=== PATIENT | female | born 1970 | race African-American/Black ===

== ENCOUNTER 2017-03-27 19:53 | Emergency (ER) | payer BC ==
[2017-03-27 20:02] VITALS: BP 137/90; PULSE 77; TEMP 99; BMI 40.2
--- NOTE | 2017-03-27 20:15 | PDOC ---
History of Present Illness - General History Source: Patient Exam Limitations: No Limitations - History of Present Illness Initial Comments: The patient is a 46 yo F with a PMHx significant for pituitary adenoma who presents with L 4th toe pain. The patient states at 4pm today after having an argument over the phone with her she turned around and hit her 4th L toe on the wheels of a suitcase. The patient denies pain at rest. The patient denies loss of sensation. <Vernell Rubi - Last Filed: 03/27/17 20:26> - General History Source: Patient, Old Records Exam Limitations: No Limitations <Enedina Correa - Last Filed: 03/27/17 21:42> - General Chief Complaint: Injury Stated Complaint: TOE PAIN Time Seen by Provider: 03/27/17 20:12 Past History <Vernell Rubi - Last Filed: 03/27/17 20:26> - Past Medical History Other medical history: ELEVATED PROLACTIN LEVELS - Surgical History Abdominal Surgery: Yes (TUBAL LIGATION) - Psycho/Social/Smoking Cessation Hx Anxiety: No Suicidal Ideation: No Smoking Status: No Smoking History: Never smoked Have you smoked in the past 12 months: No Number of Cigarettes Smoked Daily: 0 Hx Alcohol Use: No Drug/Substance Use Hx: No Substance Use Type: None <Enedina Correa - Last Filed: 03/27/17 21:42> - Past Medical History Allergies/Adverse Reactions: Allergies Allergy/AdvReac Type Severity Reaction Status Date / Time Penicillins Allergy Severe Difficulty Verified 11/20/15 23:23 Breathing Home Medications: Ambulatory Orders Cabergoline [Dostinex -] 0.5 mg PO WEEKLY 03/27/17 Review of Systems - Review of Systems Able to Perform ROS?: Yes Comments:: CONSTITUTIONAL: Absent: fever, no chills, no fatigue EYES: Absent: visual changes ENT: Absent: ear pain, no sore throat CARDIOVASCULAR: Absent: chest pain, no palpitations RESPIRATORY: Absent: cough, no SOB GI: Absent: abdominal pain, no nausea, no vomiting, no constipation, no diarrhea GENITOURINARY: Absent: dysuria, no frequency, no hematuria MUSKULOSKELETAL: Absent: +4th L toe pain. back pain, neck pain SKIN: Absent: rash <Vernell Rubi - Last Filed: 03/27/17 20:26> *Physical Exam - Vital Signs Last Vital Signs Temp Pulse Resp BP Pulse Ox 99 F 77 20 137/90 97 03/27/17 19:59 03/27/17 19:59 03/27/17 19:59 03/27/17 19:59 03/27/17 19:59 - Physical Exam Comments: GENERAL: Well-appearing, well-nourished. No apparent distress. HEENT: Normocephalic, atraumatic. PERRL, EOM intact. CARDIOVASCULAR: Normal S1, S2. Regular rate and rhythm. PULMONARY: Clear to auscultation bilaterally. ABDOMEN: Soft, non-distended, non-tender. EXTREMITIES: Normal ROM in all four extremities. No gross deformities. Point tenderness to distal 4th metatarsal and entire 4th toe. Minimal soft tissue swelling. Ecchymosis was minimal. Sensory and motor function intact. No gross deformity. SKIN: Warm, dry. No rash NEUROLOGICAL: No focal neurological deficits. <Vernell Rubi - Last Filed: 03/27/17 20:26> - Vital Signs Last Vital Signs Temp Pulse Resp BP Pulse Ox 99 F 77 20 137/90 97 03/27/17 19:59 03/27/17 19:59 03/27/17 19:59 03/27/17 19:59 03/27/17 19:59 <Enedina Correa - Last Filed: 03/27/17 21:42> Medical Decision Making - Medical Decision Making 03/27/17 20:23 46-year-old female with history of prolactinoma presents to the emergency Department with complaints of left fourth toe pain after striking it against a suitcase earlier today. Differential diagnosis includes but is not limited to: Fracture, contusion. Plan: 1. Plain films 2. Recommend ibuprofen or Tylenol as needed for painpatient declined stating that she doesn't take anything for pain unless its severe and this pain that she is experiencing is not severe 3. If films are negative will discharge home, follow-up with primary care physician or orthopedics and return to the emergency department if symptoms persist, worsen, or new symptoms arise. 03/27/17 21:38 Addendum: There is one view that appears to demonstrate a fracture of the 4th proximal phalynx that is not present on other views. The patient does not want to wait for the official radiology read therefore I have placed an VENITA and have given the patient a rocker boot. I have discussed the films with the patient. The plan is to discharge home and follow up with ortho or podiatry pending official read. The patient has been instructed to call in the morning for the official read. <Enedina Correa - Last Filed: 03/27/17 21:42> *DC/Admit/Observation/Transfer - Attestations Scribe Attestion: Documentation prepared by Vernell Rubi, acting as medical authorization specialist for Enedina Correa MD, /DO. <Vernell Rubi - Last Filed: 03/27/17 20:26> - Discharge Dispostion Admit: No - Attestations Physician Attestion: 03/27/17 20:24 I, Dr. Enedina Correa, attest that the scribes documentation that appears above has been prepared under my direction and personally reviewed by me in its entirety. I confirmed that the note above accurately reflects all work, treatment, procedures, and medical decision-making performed by me. <Enedina Correa - Last Filed: 03/27/17 21:42> Diagnosis at time of Disposition: Contusion of left lesser toe(s) without damage to nail, initial encounter - Discharge Dispostion Disposition: HOME Condition at time of disposition: Stable - Referrals Referrals: Cassie Curry [Primary Care Provider] - - Patient Instructions Printed Discharge Instructions: DI for Contusion Additional Instructions: You may have a fracture of the 4th proximal phalange of your left foot. Please call the ED in the morning to obtain the official read. You may take Tylenol or ibuprofen as needed for pain. Please follow-up with your primary care physician or orthopedics if the symptoms persist, alternatively you can return to the emergency department if your symptoms persist, worsen, or new symptoms arise. Orthopedist: Dr. Lozano [phone]
== END 2017-03-27 22:06 | disposition home or self-care (01) ==
LOC: FER 19:53
DX: S90.122A Contusion of left lesser toe(s) without damage to nail, initial encounter (principal); W22.8XXA Striking against or struck by other objects, initial encounter; Y93.89 Activity, other specified; Y92.9 Unspecified place or not applicable
CPT/HCPCS: 73630-TC-LT; 99282-25